=== PATIENT | female | born 1955 | race Two or more races ===

== ENCOUNTER 2020-12-16 17:52 | Emergency (ER) | payer OTHER ==
[~2020-12-16] VITALS: Ht 162.6 cm; Wt 83.0 kg
[2020-12-16 19:17] LABS: Basophils # (auto) 0 10 ^3/uL (0-0.2); Basophils % (auto) 0.7 % (0.0-2.0); Eosinophils # (auto) 0 10 ^3/uL (0-0.8); Hemoglobin 7.2 g/dL (12.2-16.2); Lymphocytes # (auto) 1.1 10 ^3/uL (0.4-5.4); Neutrophils # (auto) 2.8 10 ^3/uL (1.6-8.6); Nucleated Red Blood Cells % 0.1 %; White Blood Cell 4.2 10^3/uL (4.4-10.8)
[2020-12-16 19:18] LABS: Eosinophils % (auto) 0.6 % (0.0-7.0); Hematocrit 22.7 % (36.0-46.0); Lymphocytes % (auto) 26.6 % (10.0-50.0); Mean Corpuscular Hemoglobin 24.6 pg (28.0-32.0); Mean Corpuscular Hgb Conc. 31.9 g/dL (32.0-36.0); Mean Corpuscular Volume 77.2 fL (80.0-100.0); Monocytes # (auto) 0.2 10 ^3/uL (0-1.3); Monocytes % (auto) 5.7 % (0.0-12.0); Neutrophils % (auto) 66.4 % (37.0-80.0); Red Blood Cells 2.94 10^6/uL (4.0-5.20); Red Cell Distribution Width 15.4 % (11.8-14.3)
[2020-12-16 19:28] LABS: Albumin 2.9 g/dL (3.4-5.0); Potassium 3.9 mmol/L (3.5-5.1)
[2020-12-16 19:30] LABS: BUN/Creatinine Ratio 16.5; Bilirubin, Total 0.3 mg/dL (0.2-1.0); Total Protein 7.7 g/dL (6.4-8.2)
[2020-12-16 19:38] LABS: INR 1.02 (0.9-1.15); Partial Thromboplastin Time 25.3 sec (23.6-33.0)
[2020-12-17] MEDS ORDERED: hydrALAZINE HCL 20 MG/ML VL IV ONE (09:30)
[2020-12-17 09:55] VITALS: BP 161/41
[2020-12-17 10:10] VITALS: BP 143/48
[2020-12-17 12:20] VITALS: BP 125/51
[2020-12-17 12:54] VITALS: BP 125/51
== END 2020-12-17 12:54 | disposition home or self-care (01) ==
LOC: ER 17:52
DX: D64.9 Anemia, unspecified (principal); N93.9 Abnormal uterine and vaginal bleeding, unspecified; I11.0 Hypertensive heart disease with heart failure; I50.9 Heart failure, unspecified; I25.2 Old myocardial infarction; Z88.2 Allergy status to sulfonamides; Z85.3 Personal history of malignant neoplasm of breast; Z90.49 Acquired absence of other specified parts of digestive tract; Z90.89 Acquired absence of other organs; Z90.710 Acquired absence of both cervix and uterus; Z98.890 Other specified postprocedural states
CPT/HCPCS: 36415; 76830; 76856; 80053; 85025; 85610; 85730; 86850; 86900; 86901; 86920; 87426; 93005; 96374; 99285; J0360; P9016

== ENCOUNTER 2021-05-26 18:09 | Emergency (ER) | payer OTHER ==
[~2021-05-26] VITALS: Ht 160 cm; Wt 86.2 kg
[2021-05-26] MEDS ORDERED: cloNIDine HCL 0.1 MG TAB PO ONE (18:45)
[2021-05-26 19:04] LABS: Basophils # (auto) 0 10 ^3/uL (0-0.2); Eosinophils # (auto) 0 10 ^3/uL (0-0.8); Lymphocytes # (auto) 0.9 10 ^3/uL (0.4-5.4); Mean Corpuscular Hemoglobin 24.6 pg (28.0-32.0); Monocytes # (auto) 0.3 10 ^3/uL (0-1.3)
[2021-05-26 19:06] LABS: Basophils % (auto) 0.3 % (0.0-2.0); Eosinophils % (auto) 0.6 % (0.0-7.0); Hematocrit 34.2 % (36.0-46.0); Hemoglobin 10.9 g/dL (12.2-16.2); Lymphocytes % (auto) 16.3 % (10.0-50.0); Mean Corpuscular Hgb Conc. 31.9 g/dL (32.0-36.0); Mean Corpuscular Volume 77.1 fL (80.0-100.0); Monocytes % (auto) 5.2 % (0.0-12.0); Neutrophils # (auto) 4.2 10 ^3/uL (1.6-8.6); Neutrophils % (auto) 77.6 % (37.0-80.0); Red Blood Cells 4.43 10^6/uL (4.0-5.20); Red Cell Distribution Width 16.1 % (11.8-14.3); White Blood Cell 5.4 10^3/uL (4.4-10.8)
[2021-05-26 19:27] LABS: Albumin 3.5 g/dL (3.4-5.0); BUN/Creatinine Ratio 19.2; Calcium 8.3 mg/dL (8.5-10.1); Potassium 3.6 mmol/L (3.5-5.1)
[2021-05-26 19:34] LABS: Bilirubin, Total 0.4 mg/dL (0.2-1.0); Total Protein 8.7 g/dL (6.4-8.2)
[2021-05-26] MEDS ORDERED: IOHEXOL 350 MG/ML 100ML IJ ONE (21:48)
[2021-05-26] MEDS ORDERED: SODIUM CHLORIDE 0.9% 500 ML IV ONE (23:30)
[2021-05-26 23:51] VITALS: BP 137/65
== END 2021-05-27 | disposition home or self-care (01) ==
LOC: ER 18:10
DX: R07.89 Other chest pain (principal); D64.9 Anemia, unspecified; I11.0 Hypertensive heart disease with heart failure; I50.9 Heart failure, unspecified; I25.2 Old myocardial infarction; Z90.49 Acquired absence of other specified parts of digestive tract; Z90.89 Acquired absence of other organs; Z88.2 Allergy status to sulfonamides
CPT/HCPCS: 36415; 71046; 71275; 80053; 84484; 85025; 93005; 99285; J7040; Q9967

== ENCOUNTER 2021-07-09 14:12 | Emergency (ER) | payer MEDICARE, OTHER ==
[~2021-07-09] VITALS: Ht 160 cm; Wt 88.0 kg
[2021-07-09] MEDS ORDERED: cloNIDine HCL 0.1 MG TAB PO ONE (14:45)
[2021-07-09] MEDS ORDERED: MORPHINE SULFATE INJECTION 2 MG/ML SYRG IM ONE (17:00)
[2021-07-09] MEDS ORDERED: ONDANSETRON ODT 4 MG TAB PO ONE (17:00)
[2021-07-09] MEDS ORDERED: ACE3T PO (17:20)
[2021-07-09 18:30] VITALS: BP 158/78
== END 2021-07-09 18:37 | disposition home or self-care (01) ==
LOC: ER 14:12
DX: S46.912A Strain of unspecified muscle, fascia and tendon at shoulder and upper arm level, left arm, initial encounter (principal); I11.0 Hypertensive heart disease with heart failure; I50.9 Heart failure, unspecified; Z90.49 Acquired absence of other specified parts of digestive tract; Z88.2 Allergy status to sulfonamides; W22.8XXA Striking against or struck by other objects, initial encounter; Y93.89 Activity, other specified; Y92.89 Other specified places as the place of occurrence of the external cause; Y99.8 Other external cause status
CPT/HCPCS: 71250; 73030; 96372; 99285; J2270; Q0162

== ENCOUNTER 2022-05-01 06:50 | Inpatient (IN) | payer OTHER, MEDICAID ==
[~2022-05-01] VITALS: Ht 162.6 cm; Wt 90.2 kg
[~2022-05-01 06:50] MED LIST: ACE3T PO
[2022-05-01] MEDS ORDERED: NITROGLYCERIN 0.4 MG SL TAB SL ONE (07:00)
[2022-05-01] MEDS ORDERED: methylPREDNISolone SOD SUCC 125 MG/2 ML VL IV ONE (07:00)
[2022-05-01] MEDS ORDERED: FUROSEMIDE 40 MG/4 ML VIAL IV ONE ×2 (07:00→13:00)
[2022-05-01 07:32] LABS: Basophils # (auto) 0 10 ^3/uL (0-0.2); Basophils % (auto) 0.2 % (0.0-2.0); Eosinophils # (auto) 0 10 ^3/uL (0-0.8); Monocytes # (auto) 0.2 10 ^3/uL (0-1.3)
[2022-05-01 07:34] LABS: Eosinophils % (auto) 0.4 % (0.0-7.0); Hematocrit 24.1 % (36.0-46.0); Lymphocytes # (auto) 0.5 10 ^3/uL (0.4-5.4); Lymphocytes % (auto) 8.8 % (10.0-50.0); Mean Corpuscular Hemoglobin 20.8 pg (28.0-32.0); Mean Corpuscular Hgb Conc. 28.5 g/dL (32.0-36.0); Mean Corpuscular Volume 73.2 fL (80.0-100.0); Monocytes % (auto) 3.4 % (0.0-12.0); Neutrophils # (auto) 4.6 10 ^3/uL (1.6-8.6); Neutrophils % (auto) 87.2 % (37.0-80.0); Nucleated Red Blood Cells % 0.2 %; Red Blood Cells 3.29 10^6/uL (4.0-5.20); Red Cell Distribution Width 19.9 % (11.8-14.3); White Blood Cell 5.3 10^3/uL (4.4-10.8)
[2022-05-01 07:48] LABS: Albumin 3.4 g/dL (3.4-5.0); Calcium 8.2 mg/dL (8.5-10.1); Magnesium 2.3 mg/dL (1.6-2.6); Potassium 3.8 mmol/L (3.5-5.1)
[2022-05-01 07:51] LABS: BUN/Creatinine Ratio 12.6; Bilirubin, Total 0.9 mg/dL (0.2-1.0); Total Protein 7.3 g/dL (6.4-8.2)
[2022-05-01 07:54] LABS: Hemoglobin 6.8 g/dL (12.2-16.2)
[2022-05-01 08:17] LABS: INR 1.06 (0.9-1.15); Partial Thromboplastin Time 25.4 sec (24.6-33.4)
[2022-05-01 09:14] LABS: Urine Bacteria MANY /hpf (None Seen); Urine Blood TRACE /uL (Negative); Urine WBC 20 /hpf (0 - 5)
[2022-05-01 09:50] VITALS: BP 107/77
[2022-05-01] MEDS ORDERED: REMDESIVIR PER PHARMACY 0 ML IV SCH (10:30)
[2022-05-01] MEDS ORDERED: NITROGLYCERIN 0.4 MG SL TAB SL PRN (10:30)
[2022-05-01] MEDS ORDERED: ONDANSETRON HCL 4 MG/2 ML VIAL IV PRN (10:30)
[2022-05-01] MEDS ORDERED: DOCUSATE SOD 100 MG CAP PO PRN (10:30)
[2022-05-01] MEDS ORDERED: ACETAMINOPHEN 500 MG TAB PO PRN (10:30)
[2022-05-01 11:24] LABS: CRP High Sensitivity 0.31 mg/dL (< 0.3); Magnesium 2.4 mg/dL (1.6-2.6)
[2022-05-01 11:25] LABS: Creatinine, Urine 56 mg/dL (30.0-125.0); Sodium Urine 109 mmol/L (40-220)
[2022-05-01] MEDS ORDERED: OSELTAMIVIR 75 MG CAP PO ONE (13:00)
[2022-05-01] MEDS ORDERED: DexAMETHasone SOD PHOS 10MG/1ML VIAL INJ IV ONE (14:00)
[2022-05-01] MEDS ORDERED: ASCORBIC ACID 1,000 MG TAB PO ONE (14:00)
[2022-05-01] MEDS ORDERED: PANTOPRAZOLE 40 MG/10 ML VIAL INJ IV ONE (14:00)
[2022-05-01] MEDS ORDERED: ZINC SULFATE 220mg CAP or TAB PO ONE (14:00)
[2022-05-01] MEDS ORDERED: CHOLECALCIFEROL (VITD3) 2,000 UNIT CAP/TAB PO ONE (14:00)
[2022-05-01] MEDS ORDERED: REMDESIVIR 200 MG in NS 210ml LOADING DOSE ADULT IV ONE (15:00)
[2022-05-01] MEDS ORDERED: REMDESIVIR 100mg 100 MG in SODIUM CHL 0.9% 230 ML IV SCH (15:00)
[2022-05-01 23:29] VITALS: BP 152/74
[2022-05-01] MEDS: OSELTAMIVIR 75 MG CAP PO SCH (23:29)
[2022-05-02] VITALS (12 sets, daily range): BP systolic 118–159; BP diastolic 66–88
[2022-05-02] MEDS ORDERED: ASPI1TAB20 PO ×2 (02:47)
[2022-05-02] MEDS ORDERED: LOSA-69 PO ×2 (02:47)
[2022-05-02] MEDS ORDERED: POTA10TA51 PO ×2 (02:47)
[2022-05-02] MEDS ORDERED: LEV100T PO ×2 (02:47)
[2022-05-02] MEDS ORDERED: FURO1TAB31 PO ×2 (02:47)
[2022-05-02 07:38] LABS: Potassium 3.6 mmol/L (3.5-5.1)
[2022-05-02 07:46] LABS: Albumin 2.9 g/dL (3.4-5.0); BUN/Creatinine Ratio 17.5; Bilirubin, Total 0.8 mg/dL (0.2-1.0); Calcium 7.8 mg/dL (8.5-10.1); Total Protein 6.9 g/dL (6.4-8.2)
[2022-05-02 07:52] LABS: Basophils # (auto) 0.1 10 ^3/uL (0-0.2); Eosinophils # (auto) 0 10 ^3/uL (0-0.8); Hemoglobin 7.4 g/dL (12.2-16.2); Lymphocytes # (auto) 0.6 10 ^3/uL (0.4-5.4); Mean Corpuscular Hemoglobin 22.1 pg (28.0-32.0); Monocytes # (auto) 0.4 10 ^3/uL (0-1.3); Nucleated Red Blood Cells % 0.1 %
[2022-05-02 07:54] LABS: Basophils % (auto) 1.4 % (0.0-2.0); Eosinophils % (auto) 0.1 % (0.0-7.0); Hematocrit 24.2 % (36.0-46.0); Lymphocytes % (auto) 11.5 % (10.0-50.0); Mean Corpuscular Hgb Conc. 30.6 g/dL (32.0-36.0); Monocytes % (auto) 7.8 % (0.0-12.0); Neutrophils # (auto) 3.8 10 ^3/uL (1.6-8.6); Neutrophils % (auto) 79.2 % (37.0-80.0); Red Blood Cells 3.36 10^6/uL (4.0-5.20); White Blood Cell 4.8 10^3/uL (4.4-10.8)
[2022-05-02 08:08] LABS: Red Cell Distribution Width 20.6 % (11.8-14.3)
[2022-05-02] MEDS ORDERED: FUROSEMIDE 40 MG/4 ML VIAL IV SCH (10:00)
[2022-05-02] MEDS ORDERED: ASCORBIC ACID 1,000 MG TAB PO SCH (10:00)
[2022-05-02] MEDS: PANTOPRAZOLE 40 MG/10 ML VIAL INJ IV SCH (10:26)
[2022-05-02] MEDS: cefTRIAXone 1GM/50ML D5W 50 ML IV SCH (10:27)
[2022-05-02] MEDS: AZITHROMYCIN 500MG/ 250ML 250 ML IV SCH (10:27)
[2022-05-02] MEDS: ZINC SULFATE 220mg CAP or TAB PO SCH (10:27)
[2022-05-02] MEDS: CHOLECALCIFEROL (VITD3) 2,000 UNIT CAP/TAB PO SCH (10:27)
[2022-05-02] MEDS: DexAMETHasone SOD PHOS 10MG/1ML VIAL INJ IV SCH (10:28)
[2022-05-02] MEDS: OSELTAMIVIR 75 MG CAP PO SCH ×2 (10:28→22:09)
[2022-05-02] MEDS: ALBUTEROL SULF HFA 90MCG INH 200DOSE IN PRN (11:15)
[2022-05-02] MEDS ORDERED: LEVOTHYROXINE SODIUM 100 MCG TAB PO ONE (13:15)
[2022-05-02] MEDS ORDERED: REMDESIVIR 100mg 100 MG in SODIUM CHL 0.9% 230 ML IV SCH (15:00)
[2022-05-03 05:00] VITALS: BP 159/80
[2022-05-03] MEDS: LEVOTHYROXINE SODIUM 100 MCG TAB PO SCH (06:57)
[2022-05-03 07:16] LABS: Basophils # (auto) 0 10 ^3/uL (0-0.2); Eosinophils # (auto) 0 10 ^3/uL (0-0.8); Lymphocytes # (auto) 0.8 10 ^3/uL (0.4-5.4); Monocytes # (auto) 0.3 10 ^3/uL (0-1.3)
[2022-05-03 07:20] LABS: Eosinophils % (auto) 0.1 % (0.0-7.0); Hematocrit 23.6 % (36.0-46.0); Hemoglobin 7.3 g/dL (12.2-16.2); Lymphocytes % (auto) 16.3 % (10.0-50.0); Mean Corpuscular Hemoglobin 21.8 pg (28.0-32.0); Mean Corpuscular Hgb Conc. 30.8 g/dL (32.0-36.0); Mean Corpuscular Volume 70.9 fL (80.0-100.0); Monocytes % (auto) 6.3 % (0.0-12.0); Neutrophils % (auto) 77.3 % (37.0-80.0); Red Blood Cells 3.33 10^6/uL (4.0-5.20); White Blood Cell 5.2 10^3/uL (4.4-10.8)
[2022-05-03 07:23] LABS: Red Cell Distribution Width 20.4 % (11.8-14.3)
[2022-05-03 07:34] LABS: Albumin 2.7 g/dL (3.4-5.0); Potassium 3.7 mmol/L (3.5-5.1)
[2022-05-03 07:39] LABS: BUN/Creatinine Ratio 25.4; Bilirubin, Total 0.7 mg/dL (0.2-1.0); Calcium 7.6 mg/dL (8.5-10.1); Total Protein 6.5 g/dL (6.4-8.2)
[2022-05-03] MEDS: ALBUTEROL SULF HFA 90MCG INH 200DOSE IN PRN (07:45)
[2022-05-03] MEDS: OSELTAMIVIR 75 MG CAP PO SCH ×2 (08:51→22:00)
[2022-05-03] MEDS: DexAMETHasone SOD PHOS 10MG/1ML VIAL INJ IV SCH (08:51)
[2022-05-03] MEDS: CHOLECALCIFEROL (VITD3) 2,000 UNIT CAP/TAB PO SCH (08:51)
[2022-05-03] MEDS: ASPirin 81 mg TAB PO SCH (08:51)
[2022-05-03] MEDS: PANTOPRAZOLE 40 MG/10 ML VIAL INJ IV SCH (08:51)
[2022-05-03] MEDS: cefTRIAXone 1GM/50ML D5W 50 ML IV SCH (08:51)
[2022-05-03] MEDS: ASCORBIC ACID 1,000 MG TAB PO SCH (08:52)
[2022-05-03] MEDS: ZINC SULFATE 220mg CAP or TAB PO SCH (08:52)
[2022-05-03 09:00] VITALS: BP 140/71
[2022-05-03] MEDS: AZITHROMYCIN 500MG/ 250ML 250 ML IV SCH (10:00)
[2022-05-03 13:00] VITALS: BP 140/64
[2022-05-03] MEDS ORDERED: ERTAPENEM SOD INJ 1 GM in SODIUM CHL 0.9% 50 ML IV ONE (13:30)
[2022-05-03 17:00] VITALS: BP 149/76
[2022-05-03] MEDS: ACETAMINOPHEN 500 MG TAB PO PRN (17:04)
[2022-05-03 22:00] VITALS: BP 131/66
[2022-05-04 05:00] VITALS: BP 128/58
[2022-05-04] MEDS: ACETAMINOPHEN 500 MG TAB PO PRN ×2 (05:44→21:31)
[2022-05-04 05:56] LABS: Basophils # (auto) 0 10 ^3/uL (0-0.2); Basophils % (auto) 0.1 % (0.0-2.0); Eosinophils # (auto) 0 10 ^3/uL (0-0.8); Eosinophils % (auto) 0.3 % (0.0-7.0); Hematocrit 25.5 % (36.0-46.0); Hemoglobin 7.7 g/dL (12.2-16.2); Lymphocytes # (auto) 0.9 10 ^3/uL (0.4-5.4); Lymphocytes % (auto) 17.3 % (10.0-50.0); Mean Corpuscular Hemoglobin 21.6 pg (28.0-32.0); Mean Corpuscular Hgb Conc. 30.1 g/dL (32.0-36.0); Mean Corpuscular Volume 71.9 fL (80.0-100.0); Monocytes # (auto) 0.3 10 ^3/uL (0-1.3); Monocytes % (auto) 5.8 % (0.0-12.0); Neutrophils # (auto) 4.2 10 ^3/uL (1.6-8.6); Neutrophils % (auto) 76.5 % (37.0-80.0); Nucleated Red Blood Cells % 0.2 %; Red Blood Cells 3.55 10^6/uL (4.0-5.20); White Blood Cell 5.5 10^3/uL (4.4-10.8)
[2022-05-04 05:57] LABS: Red Cell Distribution Width 20.5 % (11.8-14.3)
[2022-05-04 06:00] LABS: Calcium 7.5 mg/dL (8.5-10.1); Potassium 4.3 mmol/L (3.5-5.1)
[2022-05-04 06:05] LABS: BUN/Creatinine Ratio 26.9; Bilirubin, Total 0.6 mg/dL (0.2-1.0); Total Protein 6.8 g/dL (6.4-8.2)
[2022-05-04] MEDS: LEVOTHYROXINE SODIUM 100 MCG TAB PO SCH (06:30)
[2022-05-04 09:00] VITALS: BP 145/56
[2022-05-04] MEDS: DexAMETHasone SOD PHOS 10MG/1ML VIAL INJ IV SCH (10:59)
[2022-05-04] MEDS: PANTOPRAZOLE 40 MG/10 ML VIAL INJ IV SCH (10:59)
[2022-05-04] MEDS: ERTAPENEM SOD INJ 1 GM in SODIUM CHL 0.9% 50 ML IV SCH (10:59)
[2022-05-04] MEDS: ZINC SULFATE 220mg CAP or TAB PO SCH (11:00)
[2022-05-04] MEDS: ASPirin 81 mg TAB PO SCH (11:00)
[2022-05-04] MEDS: AZITHROMYCIN 500MG/ 250ML 250 ML IV SCH (11:00)
[2022-05-04] MEDS: OSELTAMIVIR 75 MG CAP PO SCH ×2 (11:00→21:31)
[2022-05-04] MEDS: ASCORBIC ACID 1,000 MG TAB PO SCH (11:01)
[2022-05-04] MEDS: CHOLECALCIFEROL (VITD3) 2,000 UNIT CAP/TAB PO SCH (11:02)
[2022-05-04 11:15] VITALS: BP 129/58
[2022-05-04 12:32] LABS: INR 1.09 (0.9-1.15); Partial Thromboplastin Time 25.8 sec (24.6-33.4)
[2022-05-04] MEDS: ALBUTEROL SULF HFA 90MCG INH 200DOSE IN PRN (12:32)
[2022-05-04 13:00] VITALS: BP 124/55
[2022-05-04 17:00] VITALS: BP 139/50
[2022-05-04 22:30] VITALS: BP 141/72
[2022-05-05 04:50] VITALS: BP 124/53
[2022-05-05] MEDS: LEVOTHYROXINE SODIUM 100 MCG TAB PO SCH (06:09)
[2022-05-05 06:17] LABS: Basophils # (auto) 0 10 ^3/uL (0-0.2); Eosinophils # (auto) 0 10 ^3/uL (0-0.8); Eosinophils % (auto) 0.2 % (0.0-7.0); Lymphocytes # (auto) 0.8 10 ^3/uL (0.4-5.4); Nucleated Red Blood Cells % 0.1 %
[2022-05-05 06:19] LABS: Basophils % (auto) 0.1 % (0.0-2.0); Hematocrit 24.5 % (36.0-46.0); Hemoglobin 7.4 g/dL (12.2-16.2); Lymphocytes % (auto) 16.8 % (10.0-50.0); Mean Corpuscular Hemoglobin 21.5 pg (28.0-32.0); Mean Corpuscular Hgb Conc. 30.1 g/dL (32.0-36.0); Mean Corpuscular Volume 71.7 fL (80.0-100.0); Monocytes # (auto) 0.4 10 ^3/uL (0-1.3); Monocytes % (auto) 7.7 % (0.0-12.0); Neutrophils # (auto) 3.7 10 ^3/uL (1.6-8.6); Neutrophils % (auto) 75.2 % (37.0-80.0); Red Blood Cells 3.42 10^6/uL (4.0-5.20); Red Cell Distribution Width 20.3 % (11.8-14.3)
[2022-05-05 06:24] LABS: Calcium 7.6 mg/dL (8.5-10.1); Potassium 4.1 mmol/L (3.5-5.1)
[2022-05-05 06:29] LABS: BUN/Creatinine Ratio 25.4; Bilirubin, Total 0.6 mg/dL (0.2-1.0); CRP High Sensitivity 0.1 mg/dL (< 0.3); Total Protein 6.4 g/dL (6.4-8.2)
[2022-05-05 08:00] VITALS: BP 154/67
[2022-05-05 09:00] VITALS: BP 154/67
[2022-05-05] MEDS: ASPirin 81 mg TAB PO SCH (09:29)
[2022-05-05] MEDS: PANTOPRAZOLE 40 MG/10 ML VIAL INJ IV SCH (09:29)
[2022-05-05] MEDS: ASCORBIC ACID 1,000 MG TAB PO SCH (09:29)
[2022-05-05] MEDS: AZITHROMYCIN 500MG/ 250ML 250 ML IV SCH (09:29)
[2022-05-05] MEDS: ZINC SULFATE 220mg CAP or TAB PO SCH (09:30)
[2022-05-05] MEDS: OSELTAMIVIR 75 MG CAP PO SCH ×2 (09:30→22:21)
[2022-05-05] MEDS: DexAMETHasone SOD PHOS 10MG/1ML VIAL INJ IV SCH (09:30)
[2022-05-05] MEDS: CHOLECALCIFEROL (VITD3) 2,000 UNIT CAP/TAB PO SCH (09:30)
[2022-05-05] MEDS: ACETAMINOPHEN 500 MG TAB PO PRN (10:03)
[2022-05-05] MEDS: ERTAPENEM SOD INJ 1 GM in SODIUM CHL 0.9% 50 ML IV SCH (11:43)
[2022-05-05 13:00] VITALS: BP 141/55
[2022-05-05 17:04] VITALS: BP 128/88
[2022-05-05 22:00] VITALS: BP 146/64
[2022-05-06] MEDS: ACETAMINOPHEN 500 MG TAB PO PRN (01:01)
[2022-05-06 05:00] VITALS: BP 129/46
[2022-05-06 05:58] LABS: Basophils # (auto) 0 10 ^3/uL (0-0.2); Eosinophils # (auto) 0 10 ^3/uL (0-0.8); Lymphocytes # (auto) 0.8 10 ^3/uL (0.4-5.4); Red Blood Cells 3.23 10^6/uL (4.0-5.20); White Blood Cell 4.2 10^3/uL (4.4-10.8)
[2022-05-06 06:00] LABS: Basophils % (auto) 0.1 % (0.0-2.0); Eosinophils % (auto) 0.4 % (0.0-7.0); Lymphocytes % (auto) 18.3 % (10.0-50.0); Mean Corpuscular Hemoglobin 21.5 pg (28.0-32.0); Mean Corpuscular Hgb Conc. 30.2 g/dL (32.0-36.0); Mean Corpuscular Volume 71.1 fL (80.0-100.0); Monocytes # (auto) 0.3 10 ^3/uL (0-1.3); Neutrophils % (auto) 73.2 % (37.0-80.0)
[2022-05-06 06:20] LABS: Albumin 2.7 g/dL (3.4-5.0); Calcium 7.7 mg/dL (8.5-10.1); Potassium 4.2 mmol/L (3.5-5.1)
[2022-05-06 06:23] LABS: BUN/Creatinine Ratio 27.7; Bilirubin, Total 0.6 mg/dL (0.2-1.0); Total Protein 6.1 g/dL (6.4-8.2)
[2022-05-06 06:34] LABS: Hemoglobin 6.9 g/dL (12.2-16.2); Red Cell Distribution Width 20.2 % (11.8-14.3)
[2022-05-06] MEDS: LEVOTHYROXINE SODIUM 100 MCG TAB PO SCH (07:46)
[2022-05-06 08:30] VITALS: BP 139/67
[2022-05-06] MEDS: AZITHROMYCIN 500MG/ 250ML 250 ML IV SCH (09:06)
[2022-05-06] MEDS: DexAMETHasone SOD PHOS 10MG/1ML VIAL INJ IV SCH (09:06)
[2022-05-06] MEDS: ASPirin 81 mg TAB PO SCH (09:07)
[2022-05-06] MEDS: CHOLECALCIFEROL (VITD3) 2,000 UNIT CAP/TAB PO SCH (09:07)
[2022-05-06] MEDS: OSELTAMIVIR 75 MG CAP PO SCH ×2 (09:08→21:46)
[2022-05-06] MEDS: ASCORBIC ACID 1,000 MG TAB PO SCH (09:08)
[2022-05-06] MEDS: PANTOPRAZOLE 40 MG/10 ML VIAL INJ IV SCH (09:08)
[2022-05-06] MEDS: ZINC SULFATE 220mg CAP or TAB PO SCH (09:08)
[2022-05-06] MEDS: ERTAPENEM SOD INJ 1 GM in SODIUM CHL 0.9% 50 ML IV SCH (12:00)
[2022-05-06 13:00] VITALS: BP 138/63
[2022-05-06 17:07] VITALS: BP 141/76
[2022-05-06 20:10] VITALS: BP 133/55
[2022-05-06 22:00] VITALS: BP 133/55
[2022-05-07] VITALS (10 sets, daily range): BP systolic 113–138; BP diastolic 58–69
[2022-05-07] MEDS: ACETAMINOPHEN 500 MG TAB PO PRN (04:36)
[2022-05-07 06:16] LABS: Basophils # (auto) 0 10 ^3/uL (0-0.2); Hematocrit 27.9 % (36.0-46.0); Hemoglobin 8.4 g/dL (12.2-16.2); Lymphocytes # (auto) 0.9 10 ^3/uL (0.4-5.4); Neutrophils # (auto) 3.6 10 ^3/uL (1.6-8.6); Nucleated Red Blood Cells % 0.1 %
[2022-05-07 06:19] LABS: Basophils % (auto) 0.6 % (0.0-2.0); Eosinophils # (auto) 0.1 10 ^3/uL (0-0.8); Eosinophils % (auto) 1.1 % (0.0-7.0); Lymphocytes % (auto) 17.4 % (10.0-50.0); Mean Corpuscular Hemoglobin 23.3 pg (28.0-32.0); Mean Corpuscular Hgb Conc. 30.2 g/dL (32.0-36.0); Mean Corpuscular Volume 77.1 fL (80.0-100.0); Monocytes # (auto) 0.5 10 ^3/uL (0-1.3); Monocytes % (auto) 9.6 % (0.0-12.0); Neutrophils % (auto) 71.3 % (37.0-80.0); Red Blood Cells 3.62 10^6/uL (4.0-5.20); White Blood Cell 5.1 10^3/uL (4.4-10.8)
[2022-05-07 06:25] LABS: Red Cell Distribution Width 20.4 % (11.8-14.3)
[2022-05-07] MEDS: LEVOTHYROXINE SODIUM 100 MCG TAB PO SCH (07:09)
[2022-05-07] MEDS: ZINC SULFATE 220mg CAP or TAB PO SCH (10:46)
[2022-05-07] MEDS: PANTOPRAZOLE 40 MG/10 ML VIAL INJ IV SCH (10:46)
[2022-05-07] MEDS: DexAMETHasone SOD PHOS 10MG/1ML VIAL INJ IV SCH (10:46)
[2022-05-07] MEDS: ASPirin 81 mg TAB PO SCH (10:47)
[2022-05-07] MEDS: CHOLECALCIFEROL (VITD3) 2,000 UNIT CAP/TAB PO SCH (10:47)
[2022-05-07] MEDS: OSELTAMIVIR 75 MG CAP PO SCH (10:47)
[2022-05-07] MEDS: ASCORBIC ACID 1,000 MG TAB PO SCH (10:53)
[2022-05-07] MEDS: ERTAPENEM SOD INJ 1 GM in SODIUM CHL 0.9% 50 ML IV SCH (10:54)
[2022-05-07] MEDS ORDERED: SODIUM FERR GLUC 62.5MG/5ML 125 MG in SODIUM CHL 0.9% 100 ML IV SCH (12:00)
[2022-05-07] MEDS: ALBUTEROL SULF HFA 90MCG INH 200DOSE IN PRN (14:01)
[2022-05-07] MEDS ORDERED: FERROUS SULFATE 325mg EC TAB PO SCH (18:00)
== END 2022-05-07 18:22 | DRG 177 ==
LOC: EDBD 06:50 → ER 06:50 → EDUNIT# 06:50 → TELE 10:43 → TELE-EAST 22:15
PROVIDERS: ADMIT Nurse Practitioner Family; ATTEND Internal Medicine
PROC: XW033E5 Introduction of Remdesivir Anti-infective into Peripheral Vein, Percutaneous Approach, New Technology Group 5 (ICD-10-PCS; 2022-05-01)
PROC: 5A09357 Assistance with Respiratory Ventilation, Less than 24 Consecutive Hours, Continuous Positive Airway Pressure (ICD-10-PCS; 2022-05-01)
PROC: 5A0935A Assistance with Respiratory Ventilation, Less than 24 Consecutive Hours, High Flow/Velocity Cannula (ICD-10-PCS; 2022-05-01)
PROC: 0W9B3ZZ Drainage of Left Pleural Cavity, Percutaneous Approach (ICD-10-PCS; 2022-05-01)
PROC: 30233N1 Transfusion of Nonautologous Red Blood Cells into Peripheral Vein, Percutaneous Approach (ICD-10-PCS; principal; 2022-05-02)
PROC: 05HD33Z Insertion of Infusion Device into Right Cephalic Vein, Percutaneous Approach (ICD-10-PCS; 2022-05-04)
PROC: B54MZZA Ultrasonography of Right Upper Extremity Veins, Guidance (ICD-10-PCS; 2022-05-04)
DX: U07.1 COVID-19 (principal); J96.21 Acute and chronic respiratory failure with hypoxia; J91.0 Malignant pleural effusion; N39.0 Urinary tract infection, site not specified; Z16.12 Extended spectrum beta lactamase (ESBL) resistance; D64.9 Anemia, unspecified; Z90.12 Acquired absence of left breast and nipple; E03.9 Hypothyroidism, unspecified; I25.10 Atherosclerotic heart disease of native coronary artery without angina pectoris; I11.0 Hypertensive heart disease with heart failure; I50.9 Heart failure, unspecified; B96.20 Unspecified Escherichia coli [E. coli] as the cause of diseases classified elsewhere; D50.9 Iron deficiency anemia, unspecified; E11.65 Type 2 diabetes mellitus with hyperglycemia; Z80.8 Family history of malignant neoplasm of other organs or systems; Z17.0 Estrogen receptor positive status [ER+]; Z87.891 Personal history of nicotine dependence; Z88.2 Allergy status to sulfonamides; Z85.3 Personal history of malignant neoplasm of breast
CPT/HCPCS: 36415; 36600; 71045; 76604; 76942; 80053; 81001; 82270; 82306; 82570; 82728; 82805; 83605; 83615; 83735; 83880; 83986; 84300; 84443; 84484; 85025; 85610; 85652; 85730; 86141; 86850; 86870; 86880; 86900; 86901; 86922; 87040; 87086; 87088; 87186; 87205; 87426; 87804; 89051; 93005; 93306; 94640; 96365; 96375; 96376; 97163; 99291; C9113; G0378; J0696; J1100; J1335

== ENCOUNTER 2022-05-12 09:04 | Emergency (ER) | payer OTHER, MEDICAID ==
[~2022-05-12] VITALS: Ht 160 cm; Wt 72.7 kg
[~2022-05-12 09:04] MED LIST changes: +ASPI1TAB20 PO; +FURO1TAB31 PO; +LEV100T PO; +LOSA-69 PO; +POTA10TA51 PO
[2022-05-12 10:01] LABS: INR 1.03 (0.9-1.15); Partial Thromboplastin Time 26.2 sec (24.6-33.4)
[2022-05-12 10:02] LABS: Basophils # (auto) 0 10 ^3/uL (0-0.2); Basophils % (auto) 0.7 % (0.0-2.0); Eosinophils # (auto) 0.1 10 ^3/uL (0-0.8); Eosinophils % (auto) 0.9 % (0.0-7.0); Hematocrit 28.1 % (36.0-46.0); Hemoglobin 8.5 g/dL (12.2-16.2); Lymphocytes # (auto) 1.2 10 ^3/uL (0.4-5.4); Lymphocytes % (auto) 20.3 % (10.0-50.0); Mean Corpuscular Hemoglobin 22.6 pg (28.0-32.0); Mean Corpuscular Hgb Conc. 30.1 g/dL (32.0-36.0); Mean Corpuscular Volume 75.1 fL (80.0-100.0); Monocytes # (auto) 0.4 10 ^3/uL (0-1.3); Monocytes % (auto) 7.3 % (0.0-12.0); Neutrophils # (auto) 4.2 10 ^3/uL (1.6-8.6); Neutrophils % (auto) 70.8 % (37.0-80.0); Nucleated Red Blood Cells % 0.3 %; Red Blood Cells 3.74 10^6/uL (4.0-5.20)
[2022-05-12 10:05] LABS: Red Cell Distribution Width 22.2 % (11.8-14.3)
[2022-05-12 10:45] LABS: BUN/Creatinine Ratio 23.9; Calcium 8.1 mg/dL (8.5-10.1); Potassium 3.7 mmol/L (3.5-5.1)
[2022-05-12 10:48] LABS: Total Protein 6.8 g/dL (6.4-8.2)
[2022-05-12 12:23] VITALS: BP 161/82
== END 2022-05-12 12:26 | disposition home or self-care (01) ==
LOC: EDBD 09:04 → ER 09:04
DX: S29.9XXD Unspecified injury of thorax, subsequent encounter (principal); I11.0 Hypertensive heart disease with heart failure; I50.9 Heart failure, unspecified; I25.2 Old myocardial infarction; I25.10 Atherosclerotic heart disease of native coronary artery without angina pectoris; E03.9 Hypothyroidism, unspecified; Z90.49 Acquired absence of other specified parts of digestive tract; Z90.89 Acquired absence of other organs; Z79.82 Long term (current) use of aspirin; Z79.899 Other long term (current) drug therapy; Z88.2 Allergy status to sulfonamides; X58.XXXD Exposure to other specified factors, subsequent encounter
CPT/HCPCS: 36415; 71045; 80053; 83880; 84484; 85025; 85610; 85730

== ENCOUNTER 2022-05-20 16:36 | Emergency (ER) | payer OTHER, MEDICAID ==
[~2022-05-20] VITALS: Ht 160 cm; Wt 75.0 kg
[2022-05-20 18:19] LABS: Basophils # (auto) 0 10 ^3/uL (0-0.2); Basophils % (auto) 0.4 % (0.0-2.0); Eosinophils # (auto) 0 10 ^3/uL (0-0.8); Eosinophils % (auto) 0.8 % (0.0-7.0); Hematocrit 27.6 % (36.0-46.0); Hemoglobin 8.2 g/dL (12.2-16.2); Lymphocytes % (auto) 21.3 % (10.0-50.0); Mean Corpuscular Hemoglobin 22.5 pg (28.0-32.0); Mean Corpuscular Hgb Conc. 29.7 g/dL (32.0-36.0); Mean Corpuscular Volume 75.5 fL (80.0-100.0); Monocytes # (auto) 0.3 10 ^3/uL (0-1.3); Monocytes % (auto) 5.3 % (0.0-12.0); Neutrophils # (auto) 3.5 10 ^3/uL (1.6-8.6); Neutrophils % (auto) 72.2 % (37.0-80.0); Nucleated Red Blood Cells % 0.1 %; Red Blood Cells 3.65 10^6/uL (4.0-5.20); White Blood Cell 4.8 10^3/uL (4.4-10.8)
[2022-05-20 18:20] LABS: Red Cell Distribution Width 21.1 % (11.8-14.3)
[2022-05-20 18:32] LABS: Albumin 3.1 g/dL (3.4-5.0); Calcium 8.2 mg/dL (8.5-10.1); Potassium 3.5 mmol/L (3.5-5.1)
[2022-05-20 18:34] LABS: BUN/Creatinine Ratio 23.5
[2022-05-20 18:37] LABS: Bilirubin, Total 0.5 mg/dL (0.2-1.0); Total Protein 7.1 g/dL (6.4-8.2)
[2022-05-20 23:39] VITALS: BP 136/61
== END 2022-05-20 23:43 | disposition home or self-care (01) ==
LOC: ER 16:36 → EDBD 16:36 → ER 23:40
DX: D50.9 Iron deficiency anemia, unspecified (principal); C79.81 Secondary malignant neoplasm of breast; J90 Pleural effusion, not elsewhere classified; C78.02 Secondary malignant neoplasm of left lung; E44.1 Mild protein-calorie malnutrition; I13.0 Hypertensive heart and chronic kidney disease with heart failure and stage 1 through stage 4 chronic kidney disease, or unspecified chronic kidney disease; N18.30 Chronic kidney disease, stage 3 unspecified; I50.9 Heart failure, unspecified; Z68.29 Body mass index [BMI] 29.0-29.9, adult; Z90.49 Acquired absence of other specified parts of digestive tract; Z88.2 Allergy status to sulfonamides
CPT/HCPCS: 36415; 71046; 80053; 85025

== ENCOUNTER 2022-06-22 15:41 | Inpatient (IN) | payer OTHER, MEDICAID ==
[~2022-06-22] VITALS: Ht 160 cm; Wt 86.0 kg
[2022-06-22 17:15] LABS: Albumin 3.2 g/dL (3.4-5.0); Calcium 8.5 mg/dL (8.5-10.1); Mean Corpuscular Hgb Conc. 28.9 g/dL (32.0-36.0); Potassium 4.1 mmol/L (3.5-5.1); White Blood Cell 3.3 10^3/uL (4.4-10.8)
[2022-06-22 17:17] LABS: BUN/Creatinine Ratio 13.9
[2022-06-22 17:19] LABS: Bilirubin, Total 0.8 mg/dL (0.2-1.0); Mean Corpuscular Hemoglobin 20.3 pg (28.0-32.0); Mean Corpuscular Volume 70.3 fL (80.0-100.0); Red Blood Cells 2.99 10^6/uL (4.0-5.20); Red Cell Distribution Width 18.3 % (11.8-14.3); Total Protein 6.9 g/dL (6.4-8.2)
[2022-06-22 17:40] LABS: Hemoglobin 6.1 g/dL (12.2-16.2)
[2022-06-22 17:41] LABS: Band Neutrophils % (manual) 0; Basophils % (manual) 0 (0.0-2.0); Blast Cells 0; Eosinophils % (manual) 0 (0-7); Metamyelocytes % 0; Myelocytes % 0; Promyelocytes % 0; Reactive Lymphocytes 0
[2022-06-22 17:56] LABS: Lymphocytes % (manual) 15 (10.0-50.0); Monocytes % (manual) 3 (0-12)
[2022-06-22] MEDS ORDERED: levoFLOXacin 500MG 100 ML IV ONE ×2 (20:30)
[2022-06-22] MEDS ORDERED: NITROGLYCERIN 0.4 MG SL TAB SL PRN (22:00)
[2022-06-22] MEDS ORDERED: ALBUTEROL SULF 2.5 MG/0.5ML(0.5%) NEB SOLN NEB PRN (22:00)
[2022-06-22] MEDS ORDERED: ONDANSETRON HCL 4 MG/2 ML VIAL IV PRN (22:00)
[2022-06-22] MEDS ORDERED: MORPHINE SULFATE INJ 2 MG/ml SYRG IV PRN ×2 (22:00)
[2022-06-22] MEDS ORDERED: ALBUTEROL MEDNEB 2.5 mg/3ml NEB ONE (22:24)
[2022-06-23] VITALS (21 sets, daily range): BP systolic 101–142; BP diastolic 40–84
[2022-06-23 01:14] LABS: Urine Bacteria FEW /hpf (None Seen); Urine Blood Negative /uL (Negative); Urine Specific Gravity 1.014 (1.001-1.035); Urine WBC 1 /hpf (0 - 5)
[2022-06-23 08:49] LABS: Mean Corpuscular Volume 70.9 fL (80.0-100.0); White Blood Cell 3.2 10^3/uL (4.4-10.8)
[2022-06-23 08:51] LABS: Hematocrit 20.3 % (36.0-46.0); Mean Corpuscular Hemoglobin 20.3 pg (28.0-32.0); Mean Corpuscular Hgb Conc. 28.6 g/dL (32.0-36.0); Red Blood Cells 2.86 10^6/uL (4.0-5.20); Red Cell Distribution Width 18.5 % (11.8-14.3)
[2022-06-23 08:58] LABS: Hemoglobin 5.8 g/dL (12.2-16.2)
[2022-06-23 08:59] LABS: Basophils % (manual) 0 (0.0-2.0); Blast Cells 0; Eosinophils % (manual) 0 (0-7); Myelocytes % 0; Promyelocytes % 0; Reactive Lymphocytes 0
[2022-06-23 09:04] LABS: Calcium 8.3 mg/dL (8.5-10.1); Potassium 3.9 mmol/L (3.5-5.1)
[2022-06-23 09:08] LABS: % Iron Saturation 4.8 % (15-50)
[2022-06-23 09:09] LABS: INR 1.1 (0.9-1.15)
[2022-06-23] MEDS: LEVOTHYROXINE SODIUM 100 MCG TAB PO SCH (09:15)
[2022-06-23] MEDS: FERROUS SULFATE 325mg EC TAB PO SCH ×2 (09:15→19:42)
[2022-06-23] MEDS ORDERED: ENOXAPARIN SOD 40 MG/0.4 ML SYRINGE SC SCH (10:00)
[2022-06-23] MEDS: levoFLOXacin 500MG 100 ML IV SCH (10:09)
[2022-06-23] MEDS: FUROSEMIDE 40 MG TAB PO SCH (10:12)
[2022-06-23] MEDS: ASPirin-EC 81 mg tab PO SCH (10:12)
[2022-06-23] MEDS: LOSARTAN POTASSIUM 50 MG TAB PO SCH (10:12)
[2022-06-23] MEDS ORDERED: IPRATROPIUM BROM 0.5 MG/2.5ML INH SOL NEB PRN (11:45)
[2022-06-23 12:01] LABS: Band Neutrophils % (manual) 3; Lymphocytes % (manual) 23 (10.0-50.0); Metamyelocytes % 1; Monocytes % (manual) 2 (0-12)
[2022-06-23 13:14] LABS: % Iron Saturation 5.4 % (15-50)
[2022-06-23 19:04] LABS: Basophils # (auto) 0 10 ^3/uL (0-0.2); Eosinophils # (auto) 0 10 ^3/uL (0-0.8); Hemoglobin 7.7 g/dL (12.2-16.2)
[2022-06-23 19:06] LABS: Basophils % (auto) 0.7 % (0.0-2.0); Eosinophils % (auto) 0.7 % (0.0-7.0); Hematocrit 24.9 % (36.0-46.0); Lymphocytes # (auto) 0.7 10 ^3/uL (0.4-5.4); Mean Corpuscular Hemoglobin 22.3 pg (28.0-32.0); Mean Corpuscular Hgb Conc. 30.9 g/dL (32.0-36.0); Mean Corpuscular Volume 72.3 fL (80.0-100.0); Monocytes # (auto) 0.3 10 ^3/uL (0-1.3); Monocytes % (auto) 5.4 % (0.0-12.0); Neutrophils # (auto) 3.9 10 ^3/uL (1.6-8.6); Neutrophils % (auto) 78.2 % (37.0-80.0); Nucleated Red Blood Cells % 0.4 %; Red Blood Cells 3.45 10^6/uL (4.0-5.20)
[2022-06-23 19:07] LABS: Red Cell Distribution Width 20.4 % (11.8-14.3)
[2022-06-24 05:00] VITALS: BP 113/54
[2022-06-24 05:39] LABS: Basophils # (auto) 0 10 ^3/uL (0-0.2); Eosinophils # (auto) 0 10 ^3/uL (0-0.8); Hemoglobin 8.3 g/dL (12.2-16.2); Lymphocytes # (auto) 0.8 10 ^3/uL (0.4-5.4); Mean Corpuscular Hemoglobin 23.2 pg (28.0-32.0); Monocytes # (auto) 0.2 10 ^3/uL (0-1.3)
[2022-06-24 05:46] LABS: Basophils % (auto) 0.3 % (0.0-2.0); Eosinophils % (auto) 0.5 % (0.0-7.0); Hematocrit 26.4 % (36.0-46.0); Lymphocytes % (auto) 21.7 % (10.0-50.0); Mean Corpuscular Hgb Conc. 31.5 g/dL (32.0-36.0); Mean Corpuscular Volume 73.6 fL (80.0-100.0); Monocytes % (auto) 6.7 % (0.0-12.0); Neutrophils # (auto) 2.6 10 ^3/uL (1.6-8.6); Neutrophils % (auto) 70.8 % (37.0-80.0); Nucleated Red Blood Cells % 0.2 %; Red Blood Cells 3.59 10^6/uL (4.0-5.20); White Blood Cell 3.7 10^3/uL (4.4-10.8)
[2022-06-24 05:47] LABS: Red Cell Distribution Width 20.5 % (11.8-14.3)
[2022-06-24 05:51] LABS: Albumin 2.9 g/dL (3.4-5.0); Calcium 7.9 mg/dL (8.5-10.1); Potassium 3.7 mmol/L (3.5-5.1)
[2022-06-24 05:54] LABS: BUN/Creatinine Ratio 13.8; Bilirubin, Total 1.3 mg/dL (0.2-1.0); Total Protein 6.3 g/dL (6.4-8.2)
[2022-06-24] MEDS: LEVOTHYROXINE SODIUM 100 MCG TAB PO SCH (06:26)
[2022-06-24 09:00] VITALS: BP 98/42
[2022-06-24] MEDS: FERROUS SULFATE 325mg EC TAB PO SCH (09:02)
[2022-06-24] MEDS: levoFLOXacin 500MG 100 ML IV SCH (09:03)
[2022-06-24] MEDS: ASPirin-EC 81 mg tab PO SCH (09:03)
[2022-06-24] MEDS: LOSARTAN POTASSIUM 50 MG TAB PO SCH (09:07)
[2022-06-24] MEDS: FUROSEMIDE 40 MG TAB PO SCH (09:08)
[2022-06-24] MEDS ORDERED: VITACAP46 OR (10:59)
[2022-06-24] MEDS ORDERED: FERR324T4 PO (10:59)
[2022-06-24 12:00] VITALS: BP 120/34
[2022-06-24 12:25] VITALS: BP 106/48
[2022-08-02] MEDS ORDERED: HYDR-4902 PO ×2 (15:19→15:21)
[2022-08-02] MEDS ORDERED: LEVO500T31 PO (15:19)
[2022-08-02] MEDS ORDERED: LEVO750T8 PO (15:21)
== END 2022-06-24 14:06 | disposition home health service (06) | DRG 597 ==
LOC: ER 15:41 → EDBD 15:41 → TELE 22:05 → UNDOADMOB 22:05 → TELE 22:05 → TELE-WESTW 06-23 21:53 → UNDODISOB 06-24 14:07
PROVIDERS: ADMIT Hospitalist; ATTEND Hospitalist
PROC: 30233N1 Transfusion of Nonautologous Red Blood Cells into Peripheral Vein, Percutaneous Approach (ICD-10-PCS; principal; 2022-06-23)
PROC: 0W9B3ZZ Drainage of Left Pleural Cavity, Percutaneous Approach (ICD-10-PCS; 2022-06-23)
DX: C50.912 Malignant neoplasm of unspecified site of left female breast (principal); J96.21 Acute and chronic respiratory failure with hypoxia; J91.0 Malignant pleural effusion; Z20.822 Contact with and (suspected) exposure to COVID-19; D64.9 Anemia, unspecified; D50.9 Iron deficiency anemia, unspecified; I11.0 Hypertensive heart disease with heart failure; I50.9 Heart failure, unspecified; E03.9 Hypothyroidism, unspecified; J44.9 Chronic obstructive pulmonary disease, unspecified; I25.10 Atherosclerotic heart disease of native coronary artery without angina pectoris; I25.2 Old myocardial infarction; Z90.12 Acquired absence of left breast and nipple; Z79.899 Other long term (current) drug therapy; Z88.2 Allergy status to sulfonamides; Z85.3 Personal history of malignant neoplasm of breast; Z90.49 Acquired absence of other specified parts of digestive tract
CPT/HCPCS: 36415; 71045; 71046; 71250; 76604; 76942; 80048; 80053; 81001; 83540; 83550; 83986; 84484; 85007; 85025; 85027; 85610; 85730; 86850; 86870; 86880; 86900; 86901; 86922; 87070; 87081; 87205; 87426; 89051; 93005; 94640; 96365; 96366; 96375; 99291; G0378; J1956

== ENCOUNTER 2022-07-28 15:33 | Inpatient (IN) | payer OTHER, MEDICAID ==
[~2022-07-28] VITALS: Ht 162.6 cm; Wt 87.3 kg
[~2022-07-28 15:33] MED LIST changes: +FERR324T4 PO; +VITACAP46 OR
[2022-07-28 16:16] LABS: Basophils # (auto) 0 10 ^3/uL (0-0.2); Basophils % (auto) 0.5 % (0.0-2.0); Eosinophils # (auto) 0 10 ^3/uL (0-0.8); Eosinophils % (auto) 0.5 % (0.0-7.0); Hematocrit 22.5 % (36.0-46.0); Lymphocytes # (auto) 0.8 10 ^3/uL (0.4-5.4); Lymphocytes % (auto) 22.4 % (10.0-50.0); Mean Corpuscular Hemoglobin 22.7 pg (28.0-32.0); Mean Corpuscular Hgb Conc. 30.7 g/dL (32.0-36.0); Mean Corpuscular Volume 74.1 fL (80.0-100.0); Monocytes # (auto) 0.1 10 ^3/uL (0-1.3); Monocytes % (auto) 4.2 % (0.0-12.0); Neutrophils # (auto) 2.5 10 ^3/uL (1.6-8.6); Neutrophils % (auto) 72.4 % (37.0-80.0); Nucleated Red Blood Cells % 0.1 %; Red Blood Cells 3.04 10^6/uL (4.0-5.20); Red Cell Distribution Width 19.7 % (11.8-14.3); White Blood Cell 3.5 10^3/uL (4.4-10.8)
[2022-07-28 16:19] LABS: Hemoglobin 6.9 g/dL (12.2-16.2)
[2022-07-28 16:32] LABS: Albumin 3.1 g/dL (3.4-5.0); Calcium 8.4 mg/dL (8.5-10.1); Potassium 3.8 mmol/L (3.5-5.1)
[2022-07-28 16:36] LABS: BUN/Creatinine Ratio 16.8 (10.0-20.0); Bilirubin, Total 0.8 mg/dL (0.2-1.0); Total Protein 6.9 g/dL (6.4-8.2)
[2022-07-28 16:40] LABS: INR 1.03 (0.9-1.15); Partial Thromboplastin Time 26.5 sec (24.6-33.4)
[2022-07-29] VITALS (11 sets, daily range): BP systolic 134–180; BP diastolic 52–83
[2022-07-29] MEDS ORDERED: ACETAMINOPHEN 325 MG TAB PO PRN (03:15)
[2022-07-29] MEDS ORDERED: ONDANSETRON HCL 4 MG/2 ML VIAL IV PRN (03:15)
[2022-07-29] MEDS ORDERED: TEMAZEPAM 15 MG CAP PO PRN (03:15)
[2022-07-29] MEDS ORDERED: HYDROcodone-ACET 5/325MG TAB PO PRN (03:15)
[2022-07-29] MEDS ORDERED: LEVOTHYROXINE SODIUM 100 MCG TAB PO SCH (07:00)
[2022-07-29] MEDS ORDERED: FERROUS SULFATE 325mg EC TAB PO SCH (08:00)
[2022-07-29 08:31] LABS: Basophils # (auto) 0 10 ^3/uL (0-0.2); Monocytes # (auto) 0.2 10 ^3/uL (0-1.3); White Blood Cell 4.2 10^3/uL (4.4-10.8)
[2022-07-29 08:32] LABS: Basophils % (auto) 0.9 % (0.0-2.0); Eosinophils # (auto) 0 10 ^3/uL (0-0.8); Eosinophils % (auto) 0.8 % (0.0-7.0); Hematocrit 27.5 % (36.0-46.0); Hemoglobin 8.6 g/dL (12.2-16.2); Lymphocytes # (auto) 0.6 10 ^3/uL (0.4-5.4); Lymphocytes % (auto) 13.5 % (10.0-50.0); Mean Corpuscular Hemoglobin 24.3 pg (28.0-32.0); Mean Corpuscular Hgb Conc. 31.3 g/dL (32.0-36.0); Mean Corpuscular Volume 77.6 fL (80.0-100.0); Monocytes % (auto) 5.5 % (0.0-12.0); Neutrophils # (auto) 3.3 10 ^3/uL (1.6-8.6); Neutrophils % (auto) 79.3 % (37.0-80.0); Red Blood Cells 3.55 10^6/uL (4.0-5.20); Red Cell Distribution Width 18.5 % (11.8-14.3)
[2022-07-29] MEDS ORDERED: LOSARTAN POTASSIUM 50 MG TAB PO SCH (10:00)
[2022-07-29] MEDS ORDERED: ASPirin 81 mg TAB PO SCH (10:00)
[2022-07-29] MEDS ORDERED: AZITHROMYCIN 500MG/ 250ML 250 ML IV SCH (10:00)
[2022-07-29] MEDS ORDERED: FUROSEMIDE 40 MG TAB PO SCH (10:00)
[2022-07-29] MEDS ORDERED: HYDROcodone-ACET 10/325MG TAB PO PRN (16:30)
[2022-07-29] MEDS ORDERED: MORPHINE SULFATE INJ 2 MG/ml SYRG IV PRN (16:30)
[2022-07-29] MEDS ORDERED: hydrALAZINE HCL 20 MG/ML VL IV PRN (16:30)
[2022-07-29] MEDS ORDERED: NITROGLYCERIN 0.4 MG SL TAB SL PRN (16:30)
[2022-07-29] MEDS: PIPERACILLIN-TAZOB 3.375GM 100 ML IV ONE ×2 (17:22→18:47)
[2022-07-29] MEDS: hydrALAZINE HCL 20 MG/ML VL IV SCH ×2 (17:31→18:48)
[2022-07-29] MEDS ORDERED: PIPERACILLIN-TAZOB 3.375GM 100 ML IV SCH (23:00)
[2022-07-30] VITALS (8 sets, daily range): BP systolic 122–156; BP diastolic 48–65
[2022-07-30] MEDS ORDERED: hydrALAZINE HCL 20 MG/ML VL IV PRN (00:15)
[2022-07-30] MEDS: HYDROcodone-ACET 10/325MG TAB PO PRN ×3 (00:22→13:49)
[2022-07-30] MEDS: PIPERACILLIN-TAZOB 3.375GM 100 ML IV SCH ×5 (00:23→23:52)
[2022-07-30] MEDS: hydrALAZINE HCL 20 MG/ML VL IV SCH ×5 (00:23→23:53)
[2022-07-30 06:08] LABS: Basophils # (auto) 0 10 ^3/uL (0-0.2); Eosinophils # (auto) 0.1 10 ^3/uL (0-0.8); Eosinophils % (auto) 1.6 % (0.0-7.0); Hemoglobin 8.5 g/dL (12.2-16.2); Lymphocytes # (auto) 0.5 10 ^3/uL (0.4-5.4); White Blood Cell 3.8 10^3/uL (4.4-10.8)
[2022-07-30 06:11] LABS: Basophils % (auto) 0.5 % (0.0-2.0); Hematocrit 26.9 % (36.0-46.0); Lymphocytes % (auto) 13.1 % (10.0-50.0); Mean Corpuscular Hemoglobin 24.5 pg (28.0-32.0); Mean Corpuscular Hgb Conc. 31.5 g/dL (32.0-36.0); Mean Corpuscular Volume 77.6 fL (80.0-100.0); Monocytes # (auto) 0.3 10 ^3/uL (0-1.3); Neutrophils % (auto) 77.8 % (37.0-80.0); Nucleated Red Blood Cells % 0.3 %; Red Blood Cells 3.47 10^6/uL (4.0-5.20); Red Cell Distribution Width 18.4 % (11.8-14.3)
[2022-07-30 06:26] LABS: Potassium 3.8 mmol/L (3.5-5.1)
[2022-07-30 06:41] LABS: Albumin 2.7 g/dL (3.4-5.0); Bilirubin, Total 1.4 mg/dL (0.2-1.0); CRP High Sensitivity 1.21 mg/dL (< 0.3); Calcium 8.2 mg/dL (8.5-10.1); Total Protein 6.6 g/dL (6.4-8.2)
[2022-07-30] MEDS: DexAMETHasone SOD PHOS 10MG/1ML VIAL INJ IV SCH (09:23)
[2022-07-30] MEDS ORDERED: HYDROmorphone HCL 2 MG/ML VL/or syr IV PRN (13:45)
[2022-07-31] MEDS: hydrALAZINE HCL 20 MG/ML VL IV SCH ×3 (05:23→18:00)
[2022-07-31] MEDS: HYDROcodone-ACET 10/325MG TAB PO PRN (05:23)
[2022-07-31 05:25] VITALS: BP 118/53
[2022-07-31] MEDS: PIPERACILLIN-TAZOB 3.375GM 100 ML IV SCH ×2 (06:06→14:30)
[2022-07-31] MEDS ORDERED: ONDANSETRON HCL 4 MG/2 ML VIAL IV PRN (06:45)
[2022-07-31] MEDS ORDERED: HYDROmorphone HCL 2 MG/ML VL/or syr IV PRN (06:45)
[2022-07-31] MEDS ORDERED: ACE3T PO (06:49)
[2022-07-31] MEDS ORDERED: LEVO750T8 PO (06:49)
[2022-07-31 06:53] LABS: Basophils # (auto) 0 10 ^3/uL (0-0.2); Eosinophils # (auto) 0 10 ^3/uL (0-0.8); Eosinophils % (auto) 0.6 % (0.0-7.0); Monocytes # (auto) 0.3 10 ^3/uL (0-1.3); Neutrophils # (auto) 3.1 10 ^3/uL (1.6-8.6)
[2022-07-31 06:55] LABS: Basophils % (auto) 0.1 % (0.0-2.0); Hematocrit 25.2 % (36.0-46.0); Hemoglobin 7.9 g/dL (12.2-16.2); Lymphocytes # (auto) 0.5 10 ^3/uL (0.4-5.4); Lymphocytes % (auto) 13.1 % (10.0-50.0); Mean Corpuscular Hemoglobin 24.1 pg (28.0-32.0); Mean Corpuscular Hgb Conc. 31.2 g/dL (32.0-36.0); Mean Corpuscular Volume 77.4 fL (80.0-100.0); Monocytes % (auto) 7.5 % (0.0-12.0); Neutrophils % (auto) 78.7 % (37.0-80.0); Red Blood Cells 3.26 10^6/uL (4.0-5.20); Red Cell Distribution Width 18.4 % (11.8-14.3)
[2022-07-31 07:45] LABS: Albumin 2.5 g/dL (3.4-5.0); Calcium 8.1 mg/dL (8.5-10.1); Potassium 3.8 mmol/L (3.5-5.1)
[2022-07-31 07:48] LABS: BUN/Creatinine Ratio 14.2 (10.0-20.0); Total Protein 6.1 g/dL (6.4-8.2)
[2022-07-31 08:00] VITALS: BP 126/54
[2022-07-31] MEDS: DexAMETHasone SOD PHOS 10MG/1ML VIAL INJ IV SCH (08:41)
[2022-07-31 09:57] VITALS: BP 126/54
[2022-07-31 11:16] VITALS: BP 126/54
[2022-07-31 13:08] VITALS: BP 144/66
[2022-07-31] MEDS ORDERED: SILVER NITRATE-POTAS NITRA STICK TOP ONE (16:29)
[2022-07-31 18:54] LABS: Hematocrit 26.5 % (36.0-46.0)
[2022-07-31] MEDS ORDERED: PIPERACILLIN-TAZOB 3.375GM 100 ML IV SCH (22:00)
[2022-08-01] MEDS ORDERED: LEVO500T31 PO (16:24)
[2022-08-01] MEDS ORDERED: ACE3T PO (16:25)
[2022-08-02] MEDS ORDERED: LEVO500T31 PO (15:19)
[2022-08-02] MEDS ORDERED: HYDR-4902 PO ×2 (15:19→15:21)
[2022-08-02] MEDS ORDERED: LEVO750T8 PO (15:21)
== END 2022-07-31 19:50 | disposition home or self-care (01) | DRG 597 ==
LOC: ER 15:33 → EDBD 15:33 → OVERFLOW 07-29 04:34 → UNDOADMIN 07-29 04:34 → TELE 07-29 16:35 → TELE-EAST 07-29 22:59
PROVIDERS: ADMIT Internal Medicine; ATTEND Internal Medicine
PROC: 0W9B3ZX Drainage of Left Pleural Cavity, Percutaneous Approach, Diagnostic (ICD-10-PCS; principal; 2022-07-29)
PROC: 30233N1 Transfusion of Nonautologous Red Blood Cells into Peripheral Vein, Percutaneous Approach (ICD-10-PCS; 2022-07-29)
PROC: 05H933Z Insertion of Infusion Device into Right Brachial Vein, Percutaneous Approach (ICD-10-PCS; 2022-07-29)
PROC: B54MZZA Ultrasonography of Right Upper Extremity Veins, Guidance (ICD-10-PCS; 2022-07-29)
DX: C50.919 Malignant neoplasm of unspecified site of unspecified female breast (principal); J96.20 Acute and chronic respiratory failure, unspecified whether with hypoxia or hypercapnia; U07.1 COVID-19; J98.11 Atelectasis; J91.0 Malignant pleural effusion; D64.9 Anemia, unspecified; I11.0 Hypertensive heart disease with heart failure; I25.10 Atherosclerotic heart disease of native coronary artery without angina pectoris; I50.9 Heart failure, unspecified; D72.819 Decreased white blood cell count, unspecified; J44.9 Chronic obstructive pulmonary disease, unspecified; Z79.82 Long term (current) use of aspirin; Z82.49 Family history of ischemic heart disease and other diseases of the circulatory system; Z90.10 Acquired absence of unspecified breast and nipple; Z90.49 Acquired absence of other specified parts of digestive tract
CPT/HCPCS: 36415; 71045; 76604; 80053; 82728; 83880; 84484; 85014; 85018; 85025; 85379; 85610; 85730; 86141; 86850; 86870; 86900; 86901; 86922; 87040; 87426; 93970; 99291; G0378; J1100; J2543

== ENCOUNTER 2022-08-01 02:36 | Emergency (ER) | payer OTHER, MEDICAID ==
[~2022-08-01] VITALS: Ht 180.3 cm; Wt 150.0 kg
[~2022-08-01 02:36] MED LIST changes: -ASPI1TAB20 PO; +LEVO750T8 PO; -VITACAP46 OR
[2022-08-01 06:35] LABS: Basophils # (auto) 0 10 ^3/uL (0-0.2); Eosinophils # (auto) 0.1 10 ^3/uL (0-0.8); Lymphocytes # (auto) 1.1 10 ^3/uL (0.4-5.4); Neutrophils # (auto) 3.4 10 ^3/uL (1.6-8.6); Red Cell Distribution Width 18.9 % (11.8-14.3)
[2022-08-01 06:36] LABS: Basophils % (auto) 0.9 % (0.0-2.0); Eosinophils % (auto) 1.1 % (0.0-7.0); Hematocrit 25.4 % (36.0-46.0); Hemoglobin 8.1 g/dL (12.2-16.2); Lymphocytes % (auto) 21.6 % (10.0-50.0); Mean Corpuscular Hgb Conc. 31.7 g/dL (32.0-36.0); Mean Corpuscular Volume 75.5 fL (80.0-100.0); Monocytes # (auto) 0.4 10 ^3/uL (0-1.3); Monocytes % (auto) 7.3 % (0.0-12.0); Neutrophils % (auto) 69.1 % (37.0-80.0); Nucleated Red Blood Cells % 0.2 %; Red Blood Cells 3.36 10^6/uL (4.0-5.20)
[2022-08-01 06:49] LABS: Potassium 3.8 mmol/L (3.5-5.1)
[2022-08-01 06:56] LABS: Albumin 2.9 g/dL (3.4-5.0); BUN/Creatinine Ratio 16.6 (10.0-20.0); Bilirubin, Total 0.8 mg/dL (0.2-1.0); Calcium 8.2 mg/dL (8.5-10.1)
[2022-08-01 08:00] VITALS: BP 117/64
[2022-08-01] MEDS ORDERED: LEVO500T31 PO (16:24)
[2022-08-01] MEDS ORDERED: ACE3T PO (16:25)
[2022-08-02] MEDS ORDERED: LEVO500T31 PO (15:19)
[2022-08-02] MEDS ORDERED: HYDR-4902 PO ×2 (15:19→15:21)
[2022-08-02] MEDS ORDERED: LEVO750T8 PO (15:21)
== END 2022-08-01 08:17 | disposition home or self-care (01) ==
LOC: ER 02:36 → EDBD 02:36 → ER 08:06
DX: D64.9 Anemia, unspecified (principal); L76.22 Postprocedural hemorrhage of skin and subcutaneous tissue following other procedure; M19.90 Unspecified osteoarthritis, unspecified site; I25.10 Atherosclerotic heart disease of native coronary artery without angina pectoris; I11.0 Hypertensive heart disease with heart failure; I50.9 Heart failure, unspecified; I25.2 Old myocardial infarction; Z86.2 Personal history of diseases of the blood and blood-forming organs and certain disorders involving the immune mechanism; Z90.49 Acquired absence of other specified parts of digestive tract; Z90.10 Acquired absence of unspecified breast and nipple; Z88.2 Allergy status to sulfonamides
CPT/HCPCS: 36415; 80053; 85025

== ENCOUNTER 2022-10-12 13:39 | Inpatient (IN) | payer OTHER, MEDICAID ==
[~2022-10-12] VITALS: Ht 160 cm; Wt 85.7 kg
[~2022-10-12 13:39] MED LIST changes: +HYDR-4902 PO; +LEVO500T31 PO; -LOSA-69 PO; +LOSA50TA46 PO
[2022-10-12] MEDS ORDERED: FUROSEMIDE 40 MG/4 ML VIAL IV ONE (14:15)
[2022-10-12 14:49] LABS: Basophils # (auto) 0 10 ^3/uL (0-0.2); Eosinophils # (auto) 0 10 ^3/uL (0-0.8); Lymphocytes # (auto) 0.3 10 ^3/uL (0.4-5.4); Monocytes # (auto) 0.2 10 ^3/uL (0-1.3); Nucleated Red Blood Cells % 0.3 %
[2022-10-12 14:53] LABS: Basophils % (auto) 0.7 % (0.0-2.0); Eosinophils % (auto) 0.7 % (0.0-7.0); Hematocrit 28.6 % (36.0-46.0); Hemoglobin 8.6 g/dL (12.2-16.2); Lymphocytes % (auto) 8.8 % (10.0-50.0); Mean Corpuscular Hemoglobin 21.9 pg (28.0-32.0); Mean Corpuscular Hgb Conc. 29.9 g/dL (32.0-36.0); Mean Corpuscular Volume 73.2 fL (80.0-100.0); Monocytes % (auto) 6.5 % (0.0-12.0); Neutrophils # (auto) 3.1 10 ^3/uL (1.6-8.6); Neutrophils % (auto) 83.3 % (37.0-80.0); Red Blood Cells 3.91 10^6/uL (4.0-5.20); Red Cell Distribution Width 18.7 % (11.8-14.3); White Blood Cell 3.7 10^3/uL (4.4-10.8)
[2022-10-12 15:07] LABS: Albumin 2.8 g/dL (3.4-5.0); Calcium 7.8 mg/dL (8.5-10.1); Potassium 4.2 mmol/L (3.5-5.1)
[2022-10-12 15:12] LABS: BUN/Creatinine Ratio 14.1 (10.0-20.0); Bilirubin, Total 1.1 mg/dL (0.2-1.0)
[2022-10-12] MEDS ORDERED: IPRATROPIUM BROM 0.5 MG/2.5ML INH SOL NEB PRN (17:00)
[2022-10-12] MEDS ORDERED: ALBUTEROL SULF 2.5 MG/0.5ML(0.5%) NEB SOLN NEB PRN (17:00)
[2022-10-12 17:23] LABS: INR 1.07 (0.9-1.15)
[2022-10-12] MEDS: FERROUS SULFATE 325mg EC TAB PO SCH (23:11)
[2022-10-13 00:10] VITALS: BP 146/94
[2022-10-13 06:22] LABS: Potassium 3.8 mmol/L (3.5-5.1)
[2022-10-13 06:33] LABS: Basophils # (auto) 0 10 ^3/uL (0-0.2); Eosinophils # (auto) 0 10 ^3/uL (0-0.8); Lymphocytes # (auto) 0.5 10 ^3/uL (0.4-5.4); Mean Corpuscular Hgb Conc. 30.5 g/dL (32.0-36.0); Red Cell Distribution Width 18.7 % (11.8-14.3)
[2022-10-13 06:36] LABS: Basophils % (auto) 0.6 % (0.0-2.0); Hematocrit 28.4 % (36.0-46.0); Hemoglobin 8.7 g/dL (12.2-16.2); Lymphocytes % (auto) 12.1 % (10.0-50.0); Mean Corpuscular Hemoglobin 23.1 pg (28.0-32.0); Mean Corpuscular Volume 75.7 fL (80.0-100.0); Monocytes # (auto) 0.2 10 ^3/uL (0-1.3); Monocytes % (auto) 4.9 % (0.0-12.0); Neutrophils # (auto) 3.3 10 ^3/uL (1.6-8.6); Neutrophils % (auto) 81.4 % (37.0-80.0); Nucleated Red Blood Cells % 0.4 %; Red Blood Cells 3.76 10^6/uL (4.0-5.20); White Blood Cell 4.1 10^3/uL (4.4-10.8)
[2022-10-13 06:39] LABS: BUN/Creatinine Ratio 13.7 (10.0-20.0); Bilirubin, Total 1.3 mg/dL (0.2-1.0); Calcium 7.9 mg/dL (8.5-10.1); Total Protein 7.5 g/dL (6.4-8.2)
[2022-10-13] MEDS: FUROSEMIDE 20 MG/2 ML VIAL IV SCH (09:45)
[2022-10-13] MEDS: LOSARTAN POTASSIUM 50 MG TAB PO SCH (09:46)
[2022-10-13] MEDS: PANTOPRAZOLE 40 MG/10 ML VIAL INJ IV SCH (09:48)
[2022-10-13] MEDS: LEVOTHYROXINE SODIUM 100 MCG TAB PO SCH (09:48)
[2022-10-13] MEDS: POTASSIUM CHL 20 Meq TABLET PO SCH (09:48)
[2022-10-13] MEDS: FERROUS SULFATE 325mg EC TAB PO SCH ×2 (09:48→22:16)
[2022-10-13] MEDS: MORPHINE SULFATE INJ 2 MG/ml SYRG IV PRN ×2 (12:04→15:06)
[2022-10-14] VITALS (7 sets, daily range): BP systolic 92–118; BP diastolic 37–61
[2022-10-14] MEDS: ACETAMINOPHEN 325 MG TAB PO PRN (05:40)
[2022-10-14] MEDS: LEVOTHYROXINE SODIUM 100 MCG TAB PO SCH (09:15)
[2022-10-14] MEDS: LOSARTAN POTASSIUM 50 MG TAB PO SCH (09:17)
[2022-10-14] MEDS: POTASSIUM CHL 20 Meq TABLET PO SCH (09:18)
[2022-10-14] MEDS: FUROSEMIDE 20 MG/2 ML VIAL IV SCH (09:18)
[2022-10-14] MEDS: PANTOPRAZOLE 40 MG/10 ML VIAL INJ IV SCH (09:18)
[2022-10-14] MEDS: FERROUS SULFATE 325mg EC TAB PO SCH ×2 (09:18→20:44)
[2022-10-15 05:00] VITALS: BP 115/63
[2022-10-15 09:00] VITALS: BP 102/50
[2022-10-15] MEDS: LEVOTHYROXINE SODIUM 100 MCG TAB PO SCH (10:07)
[2022-10-15] MEDS: FERROUS SULFATE 325mg EC TAB PO SCH ×2 (10:07→20:56)
[2022-10-15] MEDS: POTASSIUM CHL 20 Meq TABLET PO SCH (10:07)
[2022-10-15] MEDS: FUROSEMIDE 20 MG/2 ML VIAL IV SCH (10:08)
[2022-10-15] MEDS: LOSARTAN POTASSIUM 50 MG TAB PO SCH (10:08)
[2022-10-15 13:00] VITALS: BP 101/44
[2022-10-15 16:48] VITALS: BP 107/53
[2022-10-15] MEDS: ACETAMINOPHEN 325 MG TAB PO PRN (20:55)
[2022-10-15 22:00] VITALS: BP 96/42
[2022-10-15 23:44] VITALS: BP 107/53
[2022-10-16] MEDS: MORPHINE SULFATE INJ 2 MG/ml SYRG IV PRN (00:51)
[2022-10-16 05:00] VITALS: BP 98/42
[2022-10-16 09:00] VITALS: BP 114/41
[2022-10-16] MEDS: POTASSIUM CHL 20 Meq TABLET PO SCH (09:07)
[2022-10-16] MEDS: FERROUS SULFATE 325mg EC TAB PO SCH (09:07)
[2022-10-16] MEDS: LOSARTAN POTASSIUM 50 MG TAB PO SCH (09:07)
[2022-10-16] MEDS: LEVOTHYROXINE SODIUM 100 MCG TAB PO SCH (09:08)
[2022-10-16] MEDS: FUROSEMIDE 20 MG/2 ML VIAL IV SCH (09:08)
[2022-10-16 13:00] VITALS: BP 105/41
[2022-10-16 14:11] VITALS: BP 111/41
[2022-10-16 17:00] VITALS: BP 100/45
== END 2022-10-16 19:15 | disposition home health service (06) | DRG 597 ==
LOC: ER 13:39 → EDBD 13:39 → TELE 15:59 → TELE-WESTW 10-14 04:15
PROVIDERS: ADMIT Nurse Practitioner Family; ATTEND Internal Medicine
PROC: 0W9B3ZZ Drainage of Left Pleural Cavity, Percutaneous Approach (ICD-10-PCS; principal; 2022-10-13)
DX: C50.919 Malignant neoplasm of unspecified site of unspecified female breast (principal); E43 Unspecified severe protein-calorie malnutrition; J96.21 Acute and chronic respiratory failure with hypoxia; J91.0 Malignant pleural effusion; I11.0 Hypertensive heart disease with heart failure; J44.9 Chronic obstructive pulmonary disease, unspecified; E86.0 Dehydration; I50.9 Heart failure, unspecified; D64.9 Anemia, unspecified; D72.819 Decreased white blood cell count, unspecified; I25.10 Atherosclerotic heart disease of native coronary artery without angina pectoris; Z68.33 Body mass index [BMI] 33.0-33.9, adult; E66.01 Morbid (severe) obesity due to excess calories; Z82.49 Family history of ischemic heart disease and other diseases of the circulatory system; Z85.3 Personal history of malignant neoplasm of breast; Z90.12 Acquired absence of left breast and nipple; Z90.49 Acquired absence of other specified parts of digestive tract
CPT/HCPCS: 36415; 71045; 76604; 76942; 80053; 83880; 83986; 84484; 85025; 85610; 85730; 87070; 87205; 89051; 93005; 94640; 99291; C9113; G0378